=== PATIENT | female | born 1970 | race Caucasian/White ===

== ENCOUNTER 2021-11-08 20:06 | Inpatient (IN) | payer OTHER ==
[~2021-11-08] VITALS: Ht 152.4 cm; Wt 41.7 kg
[2021-11-09 02:33] LABS: HEMOGLOBIN 10.7 gm/dl (12.3-15.3); RED BLOOD COUNT 3.49 M/UL (4.00-5.10); WHITE BLOOD COUNT 7.3 K/UL (4.5-11.0)
[2021-11-09 02:55] LABS: BUN/CREATININE RATIO 59 (0-10)
[2021-11-09] MEDS ORDERED: AMLODIPINE BESY10 MG PO (10:06)
[2021-11-09] MEDS ORDERED: CYPROHEPTADINE H4 MG PO (10:07)
[2021-11-09] MEDS ORDERED: DOXEPIN HCL10 MG PO (10:08)
[2021-11-09] MEDS ORDERED: VITAMIN D21250 MCG PO (10:09)
[2021-11-09] MEDS ORDERED: IPRAT-ALBUT 0.5-3 ML INH (10:10)
[2021-11-09] MEDS ORDERED: MEGESTROL400 MG/11 PO (10:12)
[2021-11-09] MEDS ORDERED: PROAIR HFA8.5 GM INH (10:13)
[2021-11-09] MEDS ORDERED: ALBUTEROL2.5 MG/3 M INH (10:14)
[2021-11-09] MEDS ORDERED: NICOTINE PATCH1 EAC2 TD (10:15)
[2021-11-09] MEDS ORDERED: ATROVENT HFA12.9 GM INH (10:18)
[2021-11-09] MEDS ORDERED: VITAMIN D310 MC4 PO (10:19)
[2021-11-10 02:34] LABS: HEMOGLOBIN 10.7 gm/dl (12.3-15.3); RED BLOOD COUNT 3.48 M/UL (4.00-5.10); WHITE BLOOD COUNT 7.2 K/UL (4.5-11.0)
[2021-11-10 07:38] LABS: BUN/CREATININE RATIO 46 (0-10)
[2021-11-11 08:18] LABS: RED BLOOD COUNT 4.01 M/UL (4.00-5.10); WHITE BLOOD COUNT 11.2 K/UL (4.5-11.0)
[2021-11-11 09:39] LABS: BUN/CREATININE RATIO 46 (0-10)
[2021-11-12 02:14] LABS: HEMOGLOBIN 11.3 gm/dl (12.3-15.3); RED BLOOD COUNT 3.68 M/UL (4.00-5.10); WHITE BLOOD COUNT 12.7 K/UL (4.5-11.0)
[2021-11-12 02:50] LABS: BUN/CREATININE RATIO 40 (0-10)
[2021-11-12] MEDS ORDERED: MEDROL DOSEPAK 24 MG PO (11:24)
[2021-11-12] MEDS ORDERED: ZITHROMAX250 MG PO (11:24)
--- NOTE | 2021-11-12 11:30 | NUR ---
PTS FAMILY (SON AND MOTHER) ARE SIGNING PT OUT AMA. THEY WANT TO TAKE HER HOME AND HONOR HER WISHES. TEACHING AND EDUCATION DONE WITH MD AND RN ABOUT HER RISK FOR AND DETERIORATION. FAMILY IS STILL ADAMIT ABOUT SIGNING PT OUT AND TAKING HER HOME.
[2021-11-12] MEDS ORDERED: SPIRIVA HANDIH18 MCG INH (12:05)
[2021-11-12] MEDS ORDERED: SYMBICORT 16010.2 GM INH (12:05)
== END 2021-11-12 12:32 | disposition left against medical advice (07) | DRG 189 ==
LOC: PROG CARE 20:06
PROVIDERS: Internal Medicine; ADMIT Internal Medicine
PROC: 5A09357 Assistance with Respiratory Ventilation, Less than 24 Consecutive Hours, Continuous Positive Airway Pressure (ICD-10-PCS; principal; 2021-11-08)
PROC: 5A09357 Assistance with Respiratory Ventilation, Less than 24 Consecutive Hours, Continuous Positive Airway Pressure (ICD-10-PCS; 2021-11-10)
DX: J96.22 Acute and chronic respiratory failure with hypercapnia (principal); G93.41 Metabolic encephalopathy; E43 Unspecified severe protein-calorie malnutrition; J44.1 Chronic obstructive pulmonary disease with (acute) exacerbation; E87.4 Mixed disorder of acid-base balance; Z20.822 Contact with and (suspected) exposure to COVID-19; Z66 Do not resuscitate; Z68.1 Body mass index [BMI] 19.9 or less, adult; J96.21 Acute and chronic respiratory failure with hypoxia; J44.9 Chronic obstructive pulmonary disease, unspecified; D63.8 Anemia in other chronic diseases classified elsewhere; I10 Essential (primary) hypertension; R62.7 Adult failure to thrive; F17.210 Nicotine dependence, cigarettes, uncomplicated; Z53.21 Procedure and treatment not carried out due to patient leaving prior to being seen by health care provider; Z88.5 Allergy status to narcotic agent; Z88.8 Allergy status to other drugs, medicaments and biological substances; Z91.041 Radiographic dye allergy status; Z99.81 Dependence on supplemental oxygen
CPT/HCPCS: 36415; 36600; 71045; 80048; 80053; 82103; 82104; 82803; 83735; 85025; 85027; 93005; 94640; 94660; 94664; 94760; 97162; 97165; 97535; J1650; J2543; J2920; J2930; J7050